=== PATIENT | female | born 1970 | race Two or more races ===

== ENCOUNTER 2022-02-08 13:34 | Inpatient (IN) | payer OTHER ==
[~2022-02-08] VITALS: Ht 175.3 cm; Wt 70.3 kg
[2022-02-08] MEDS ORDERED: CLONAZEPAM0.5 MG (22:31)
[2022-02-08] MEDS ORDERED: COZAAR50 MG (22:31)
[2022-02-08] MEDS ORDERED: TOPROL XL50 M1 (22:31)
[2022-02-08] MEDS ORDERED: PROTONIX40 MG (22:32)
[2022-02-08] MEDS ORDERED: RIZATRIPTAN5 MG (22:32)
[2022-02-08] MEDS ORDERED: AMBIEN10 MG (22:32)
[2022-02-08] MEDS ORDERED: ADULT LOW DOSE81 M1 (22:32)
[2022-02-21] MEDS ORDERED: ADULT LOW DOSE81 M1 PO (08:57)
[2022-02-21] MEDS ORDERED: CLONAZEPAM1 MG PO (08:58)
[2022-02-21] MEDS ORDERED: ZOLPIDEM TARTRA10 MG PO (08:59)
[2022-02-21] MEDS ORDERED: DOCUSATE SODIU100 MG PO (08:59)
[2022-02-21] MEDS ORDERED: PROTONIX40 MG PO (09:00)
[2022-02-21] MEDS ORDERED: LIDODERM1 EACH TOP (09:01)
== END 2022-02-21 11:12 | disposition home or self-care (01) | DRG 292 ==
LOC: MEDI 13:34 → MEDJ 14:03 → MEDI 14:04 → MEDJ 14:51
PROVIDERS: ADMIT Internal Medicine Hematology & Oncology; ATTEND Internal Medicine Hematology & Oncology
PROC: 02HV33Z Insertion of Infusion Device into Superior Vena Cava, Percutaneous Approach (ICD-10-PCS; 2022-02-09)
PROC: 4A12X4Z Monitoring of Cardiac Electrical Activity, External Approach (ICD-10-PCS; 2022-02-09)
PROC: B24BZZZ Ultrasonography of Heart with Aorta (ICD-10-PCS; 2022-02-10)
PROC: CW1NLZZ Planar Nuclear Medicine Imaging of Whole Body using Gallium 67 (Ga-67) (ICD-10-PCS; 2022-02-13)
PROC: B24BZZZ Ultrasonography of Heart with Aorta (ICD-10-PCS; 2022-02-13)
PROC: 0DBK8ZX Excision of Ascending Colon, Via Natural or Artificial Opening Endoscopic, Diagnostic (ICD-10-PCS; principal; 2022-02-20)
PROC: 0DBL8ZX Excision of Transverse Colon, Via Natural or Artificial Opening Endoscopic, Diagnostic (ICD-10-PCS; 2022-02-20)
PROC: 0DBN8ZX Excision of Sigmoid Colon, Via Natural or Artificial Opening Endoscopic, Diagnostic (ICD-10-PCS; 2022-02-20)
PROC: 0DBP8ZX Excision of Rectum, Via Natural or Artificial Opening Endoscopic, Diagnostic (ICD-10-PCS; 2022-02-20)
PROC: 0DBM8ZX Excision of Descending Colon, Via Natural or Artificial Opening Endoscopic, Diagnostic (ICD-10-PCS; 2022-02-20)
DX: I50.32 Chronic diastolic (congestive) heart failure (principal); R65.10 Systemic inflammatory response syndrome (SIRS) of non-infectious origin without acute organ dysfunction; J90 Pleural effusion, not elsewhere classified; E27.49 Other adrenocortical insufficiency; K52.89 Other specified noninfective gastroenteritis and colitis; D64.9 Anemia, unspecified; R00.1 Bradycardia, unspecified; K59.09 Other constipation; M79.7 Fibromyalgia; M54.16 Radiculopathy, lumbar region; F43.20 Adjustment disorder, unspecified; I95.89 Other hypotension; M06.8A Other specified rheumatoid arthritis, other specified site; Z20.822 Contact with and (suspected) exposure to COVID-19; I11.0 Hypertensive heart disease with heart failure; E86.0 Dehydration; D12.7 Benign neoplasm of rectosigmoid junction

== ENCOUNTER 2025-09-03 15:13 | Outpatient (CLI) | payer OTHER ==
[~2025-09-03 15:13] MED LIST: ADULT LOW DOSE81 M1; ADULT LOW DOSE81 M1 PO; AMBIEN10 MG; CLONAZEPAM0.5 MG; CLONAZEPAM1 MG PO; COZAAR50 MG; DOCUSATE SODIU100 MG PO; LIDODERM1 EACH TOP; PROTONIX40 MG; PROTONIX40 MG PO; RIZATRIPTAN5 MG; TOPROL XL50 M1; ZOLPIDEM TARTRA10 MG PO
== END 2025-09-03 15:22 | disposition home or self-care (01) ==
LOC: SONOGRAMA 15:13
PROVIDERS: ATTEND Pathology Anatomic Pathology & Clinical Pathology
DX: D17.79 Benign lipomatous neoplasm of other sites (principal); L04.2 Acute lymphadenitis of upper limb; C88.80 Other malignant immunoproliferative diseases not having achieved remission